=== PATIENT | male | born 1960 | race Caucasian/White ===

== ENCOUNTER 2017-08-12 13:00 | Outpatient (CLI) | END 2017-08-12 17:00 | disposition home or self-care (01) ==

== ENCOUNTER 2017-08-31 09:57 | Outpatient (CLI) | END 2017-08-31 17:00 | disposition home or self-care (01) ==

== ENCOUNTER 2017-09-14 11:04 | Day surgery (SDC) | END 2017-09-14 17:40 | disposition home or self-care (01) ==

== ENCOUNTER 2017-10-07 11:26 | Outpatient (CLI) | END 2017-10-07 15:52 | disposition home or self-care (01) ==